=== PATIENT | female | born 1965 | race Caucasian/White ===

== ENCOUNTER → 2021-01-01 | Day surgery (SDC) | payer OTHER ==
[~2021-01-01] VITALS: Ht 152.4 cm; Wt 65.8 kg
[~2021-01-01] MED LIST: ACETAMINOPHEN500 M1 PO; ASPIRIN EC81 MG PO; AUBAGIO14 MG PO; BENADRYL25 MG PO; BIOTIN5000 MCG PO; DAILY VALUE1 EACH PO; HCTZ25 MG PO; PRAVASTATIN SOD10 MG PO; PREMPRO 0.625-1 EACH PO; TIZANIDINE HCL4 M1 PO; TUMS300 MG PO; VITAMIN B-121000 MC1 PO; VITAMIN D325 MC4 PO
[2021-01-01 07:39] LABS: HCT 41.3 % (37.0-47.0); HGB 13.9 g/dl (12.5-16.0); MCH 32.3 pg (25.0-31.0); MCHC 33.7 g/dL (32.0-36.0); MPV 12.5 fL (6.0-9.5); RBC 4.3 M/uL (4.20-5.40); RDW 12.5 % (11.5-14.0); WBC 5.5 K/uL (4.0-10.5)
[2021-01-01 07:49] LABS: ALBUMIN 3.8 g/dL (3.4-5.0); BILIRUBIN - TOTAL 0.8 mg/dL (0.2-1.0); BUN/CREAT RATIO (CALC) 11.1 RATIO; CREATININE 0.72 mg/dL (0.51-0.95); GLOBULIN (CALCULATION) 3.3 g/dL; POTASSIUM 3.1 mmol/L (3.5-5.1); TOTAL PROTEIN 7.1 g/dL (6.4-8.2)
== END | disposition home or self-care (01) ==
LOC: FAS 06:41
PROVIDERS: Surgery
DX: Z12.11 Encounter for screening for malignant neoplasm of colon (principal); D12.6 Benign neoplasm of colon, unspecified; J30.9 Allergic rhinitis, unspecified; F41.9 Anxiety disorder, unspecified; K57.30 Diverticulosis of large intestine without perforation or abscess without bleeding; M79.7 Fibromyalgia; L73.9 Follicular disorder, unspecified; K21.9 Gastro-esophageal reflux disease without esophagitis; I10 Essential (primary) hypertension; E78.00 Pure hypercholesterolemia, unspecified; K58.9 Irritable bowel syndrome, unspecified; N95.9 Unspecified menopausal and perimenopausal disorder; G43.909 Migraine, unspecified, not intractable, without status migrainosus; G35 Multiple sclerosis; E55.9 Vitamin D deficiency, unspecified; F17.210 Nicotine dependence, cigarettes, uncomplicated; Z80.0 Family history of malignant neoplasm of digestive organs; Z79.82 Long term (current) use of aspirin; Z79.899 Other long term (current) drug therapy; Z88.1 Allergy status to other antibiotic agents; Z88.6 Allergy status to analgesic agent; Z88.8 Allergy status to other drugs, medicaments and biological substances; Z91.018 Allergy to other foods; Z90.89 Acquired absence of other organs; Z90.722 Acquired absence of ovaries, bilateral; Z90.710 Acquired absence of both cervix and uterus
CPT/HCPCS: 36415; 80053; J2250; J2704; J7120